=== PATIENT | female | born 1930 | race Caucasian/White ===

== ENCOUNTER 2017-12-23 06:23 | Inpatient (IN) | payer MEDICARE, MEDICAID ==
[~2017-12-23] VITALS: Ht 162.6 cm; Wt 75.0 kg
[~2017-12-23 06:23] MED LIST: ACET650T24 PO; ADV50250 IH; ALD25T PO; ALEN70TA48 PO; ASPI-1265 PO; CALC-3 PO; DOCU100C40 PO; FURO40TA4 PO; HYDR-3965 PO; HYDR-569 PO; ISOS30TA PO; LEVO50TA67 PO; LORA-512 PO; LOSA50TA3 PO; ZOC5T PO
[2017-12-23] MEDS ORDERED: albuterol 2.5 MG/3 ML nebule NEB ONE (06:45)
[2017-12-23 07:16] LABS: BASOPHILS % (AUTO) 0.1 % (0-1); EOSINOPHILS % (AUTO) 0 % (0-6); HEMATOCRIT 28.9 % (35.0-45.0); HEMOGLOBIN 9.2 g/dl (12.0-16.0); LYMPHOCYTES # (AUTO) 0.9 X10'3 (1.1-4.8); LYMPHOCYTES % (AUTO) 7.1 % (21-51); MEAN CORPUSCULAR HEMOGLOBIN 25.9 PG (27.0-31.0); MEAN PLATELET VOLUME 6.7 FL (7.4-10.4); MONOCYTES # (AUTO) 0.6 X10'3 (0-0.9); MONOCYTES % (AUTO) 4.6 % (2-12); NEUTROPHILS # (AUTO) 10.7 X10'3 (1.8-7.7); NEUTROPHILS % (AUTO) 88.2 % (42-75); PLATELET COUNT 321 X10'3 (140-440); RED BLOOD COUNT 3.56 X10'6 (4.20-5.60); RED CELL DISTRIBUTION WIDTH 16.2 % (11.5-14.5); WHITE BLOOD COUNT 12.2 X10'3 (4.5-11.0)
[2017-12-23 07:25] LABS: PARTIAL THROMBOPLASTIN TIME 33 SECONDS (22-32); PROTHROMBIN TIME 10.1 SECONDS (9.0-12.0)
[2017-12-23] MEDS ORDERED: methylPREDNISolone sod succ 125mg/2ml vial IV ONE (07:30)
[2017-12-23 07:31] LABS: ALANINE AMINOTRANSFERASE 41 U/L (12-78); ALBUMIN 2.3 G/DL (3.4-5.0); ALBUMIN/GLOBULIN RATIO 0.4 (1.1-1.5); ALKALINE PHOSPHATASE 455 IU/L (46-116); ANION GAP 11 (8-16); ASPARTATE AMINO TRANSFERASE 44 U/L (10-37); BILIRUBIN,TOTAL 0.3 MG/DL (0.1-1.0); BLOOD UREA NITROGEN 36 MG/DL (7-18); BUN/CREATININE RATIO 29.5 (6.6-38.0); CALCIUM 8.9 MG/DL (8.5-10.1); CHLORIDE 104 MMOL/L (99-107); CREATININE 1.22 MG/DL (0.40-0.90); GLUCOSE 175 MG/DL (70-104); POTASSIUM 4.6 MMOL/L (3.5-5.1); SODIUM 139 MMOL/L (135-145); TOTAL CARBON DIOXIDE 23.7 MMOL/L (24-32); TOTAL PROTEIN 7.7 G/DL (6.4-8.2); eGFR 42 ML/MIN
[2017-12-23] MEDS ORDERED: ipratropium 0.5 MG/2.5ML nebule IH ONE (08:30)
[2017-12-23] MEDS ORDERED: ipratropium 0.5 MG/2.5ML nebule ONE (08:30)
[2017-12-23] MEDS ORDERED: furosemide 10 MG/1 ML 10ml inj IV ONE (10:15)
[2017-12-23] MEDS ORDERED: nitroGLYCERIN 0.4mg SUBLingual tab SL PRN (10:15)
[2017-12-23] MEDS ORDERED: magnesium 4gm in 100ml NS 100 ML IV PRN (10:20)
[2017-12-23] MEDS ORDERED: magnesium 2GM in 50ml NS 50 ML IV PRN (10:20)
[2017-12-23] MEDS ORDERED: morphine 4 MG/ML inj SYRINge IV PRN ×2 (10:20)
[2017-12-23] MEDS ORDERED: acetaminophen 325mg tablet PO PRN ×2 (10:20)
[2017-12-23] MEDS ORDERED: potassium Cl 20 mEq SR tablet PO PRN ×2 (10:20)
[2017-12-23] MEDS ORDERED: HYDROcodone/acetaminophen 10/325mg tab PO PRN (10:20)
[2017-12-23] MEDS ORDERED: magnesium hydroxide 30ml (MOM) UD suspension PO PRN (10:20)
[2017-12-23] MEDS ORDERED: mag hydrox/Alum hydrox/simeth 30ml oral suspension PO PRN (10:20)
[2017-12-23] MEDS ORDERED: ondansetron/PF 4mg/2ml inj IV PRN (10:20)
[2017-12-23] MEDS ORDERED: HYDROcodone/acetaminophen 5mg/325mg tablet PO PRN (10:20)
[2017-12-23] MEDS ORDERED: potassium Cl 40MEQ/NS 500ml 500 ML IV PRN ×2 (10:20)
[2017-12-23] MEDS ORDERED: magnesium Cl slow-release 64mg tablet PO PRN (10:20)
[2017-12-23] MEDS ORDERED: docusate sod 100mg capsule PO PRN (10:40)
[2017-12-23] MEDS ORDERED: methylPREDNISolone sod succ 125mg/2ml vial IV SCH (10:40)
[2017-12-23] MEDS: levoFLOXACIN-Levaquin 500mg/D5 100 ML IV SCH (11:17)
[2017-12-23] MEDS ORDERED: HYDR-3972 (11:44)
[2017-12-23] MEDS ORDERED: PROP10TA10 (11:44)
[2017-12-23 12:50] VITALS: BP 128/66
[2017-12-23 15:40] VITALS: BP 133/64
[2017-12-23 16:35] VITALS: BP 122/66
[2017-12-23] MEDS ORDERED: heparin 10,000 units/1 ML INJ IV PRN (16:50)
[2017-12-23] MEDS ORDERED: heparin 10,000 units/1 ML INJ IV ONE (16:50)
[2017-12-23 17:13] LABS: BASOPHILS % (AUTO) 0.1 % (0-1); EOSINOPHILS % (AUTO) 0.6 % (0-6); HEMATOCRIT 27.2 % (35.0-45.0); HEMOGLOBIN 8.7 g/dl (12.0-16.0); LYMPHOCYTES # (AUTO) 0.5 X10'3 (1.1-4.8); LYMPHOCYTES % (AUTO) 9.8 % (21-51); MEAN CORPUSCULAR HEMOGLOBIN 25.6 PG (27.0-31.0); MEAN PLATELET VOLUME 7.6 FL (7.4-10.4); MONOCYTES % (AUTO) 0.9 % (2-12); NEUTROPHILS # (AUTO) 4.2 X10'3 (1.8-7.7); NEUTROPHILS % (AUTO) 88.6 % (42-75); PLATELET COUNT 220 X10'3 (140-440); WHITE BLOOD COUNT 4.7 X10'3 (4.5-11.0)
[2017-12-23 17:18] LABS: PARTIAL THROMBOPLASTIN TIME 33 SECONDS (22-32); PROTHROMBIN TIME 10.3 SECONDS (9.0-12.0)
[2017-12-23] MEDS: albuterol 2.5 MG/3 ML nebule NEB SCH ×2 (17:23→20:13)
[2017-12-23] MEDS ORDERED: tirofiban 5mg in NS 100mL 100 ML IV SCH (18:30)
[2017-12-23 19:00] VITALS: BP 137/94
[2017-12-23] MEDS ORDERED: heparin, porcine 5000 units/ml vial SQ SCH (20:00)
[2017-12-23] MEDS ORDERED: temazepam 15mg capsule PO PRN (21:00)
[2017-12-23] MEDS: atorvastatin 10mg tablet PO SCH (21:00)
[2017-12-23 23:00] VITALS: BP 119/71
[2017-12-24] VITALS (11 sets, daily range): BP systolic 90–121; BP diastolic 52–69
[2017-12-24] MEDS ORDERED: morphine 2 MG/ML inj. syringe IV PRN (01:00)
[2017-12-24] MEDS ORDERED: nitroGLYCERIN 0.4mg/hour patch TD ONE (01:00)
[2017-12-24] MEDS ORDERED: morphine 4 MG/ML inj SYRINge IV PRN (01:10)
[2017-12-24] MEDS: morphine 4 MG/ML inj SYRINge IV PRN ×2 (01:29→06:23)
[2017-12-24] MEDS: albuterol 2.5 MG/3 ML nebule NEB SCH ×4 (02:37→20:00)
[2017-12-24 06:47] LABS: ALBUMIN 2.3 G/DL (3.4-5.0); ANION GAP 15 (8-16); BLOOD UREA NITROGEN 55 MG/DL (7-18); BUN/CREATININE RATIO 30.4 (6.6-38.0); CALCIUM 9.1 MG/DL (8.5-10.1); CHLORIDE 105 MMOL/L (99-107); CREATININE 1.81 MG/DL (0.40-0.90); GLUCOSE 170 MG/DL (70-104); MAGNESIUM 2.2 MG/DL (1.5-2.4); POTASSIUM 5.5 MMOL/L (3.5-5.1); SODIUM 141 MMOL/L (135-145); eGFR 26 ML/MIN
[2017-12-24] MEDS ORDERED: levoTHYROXINE 25mcg tablet PO SCH (07:00)
[2017-12-24] MEDS ORDERED: pantoprazole 40mg Tablet.DR PO SCH (07:30)
[2017-12-24] MEDS ORDERED: losartan 50mg tablet PO SCH (08:00)
[2017-12-24] MEDS ORDERED: spironolactone 25 MG tablet PO SCH (08:00)
[2017-12-24] MEDS ORDERED: K and/or MAG REPLACEMENT MC SCH (08:00)
[2017-12-24] MEDS ORDERED: isosorbide mononitrate 30mg tab.SR.24H PO SCH (08:00)
[2017-12-24] MEDS ORDERED: furosemide 20 MG/2 ML vial IV SCH ×2 (08:00→20:00)
[2017-12-24] MEDS ORDERED: cetirizine 10mg tablet PO SCH (08:00)
[2017-12-24] MEDS ORDERED: aspirin 81mg tab.chew PO SCH (08:00)
[2017-12-24 08:29] LABS: BASOPHILS % (AUTO) 0 % (0-1); EOSINOPHILS % (AUTO) 0.7 % (0-6); HEMATOCRIT 26.9 % (35.0-45.0); HEMOGLOBIN 8.8 g/dl (12.0-16.0); LYMPHOCYTES # (AUTO) 0.5 X10'3 (1.1-4.8); LYMPHOCYTES % (AUTO) 7.2 % (21-51); MEAN CORPUSCULAR HGB CONC 32.8 % (33.0-36.5); MEAN CORPUSCULAR VOLUME 79.3 FL (78-98); MEAN PLATELET VOLUME 8.8 FL (7.4-10.4); MONOCYTES # (AUTO) 0.4 X10'3 (0-0.9); MONOCYTES % (AUTO) 6.9 % (2-12); NEUTROPHILS # (AUTO) 5.5 X10'3 (1.8-7.7); NEUTROPHILS % (AUTO) 85.2 % (42-75); RED BLOOD COUNT 3.39 X10'6 (4.20-5.60); RED CELL DISTRIBUTION WIDTH 15.8 % (11.5-14.5); WHITE BLOOD COUNT 6.4 X10'3 (4.5-11.0)
[2017-12-24 08:49] LABS: PLATELET COUNT 11 X10'3 (140-440)
[2017-12-24] MEDS: carVEDilol 3.125mg tablet PO SCH ×2 (10:02→20:00)
[2017-12-24] MEDS: levoFLOXACIN-Levaquin 500mg/D5 100 ML IV SCH (10:23)
[2017-12-24 10:55] LABS: CHOL/HDL RATIO 1.6 (0.00-4.99); CHOLESTEROL 95 MG/DL (0-200); HDL CHOLESTEROL 60 MG/DL (35-60); LDL CHOLESTEROL 25 MG/DL (50-100); TRIGLYCERIDES 50 MG/DL (20-135)
[2017-12-24 14:29] LABS: ALBUMIN 2.3 G/DL (3.4-5.0); ANION GAP 11 (8-16); BLOOD UREA NITROGEN 66 MG/DL (7-18); BUN/CREATININE RATIO 32.4 (6.6-38.0); CALCIUM 8.7 MG/DL (8.5-10.1); CHLORIDE 105 MMOL/L (99-107); CREATININE 2.04 MG/DL (0.40-0.90); POTASSIUM 5.8 MMOL/L (3.5-5.1); SODIUM 141 MMOL/L (135-145); TOTAL CARBON DIOXIDE 24.8 MMOL/L (24-32); eGFR 23 ML/MIN
[2017-12-24 14:30] LABS: GLUCOSE 149 MG/DL (70-104)
[2017-12-24] MEDS ORDERED: furosemide 40mg/4ml inj IV ONE (14:40)
[2017-12-24] MEDS ORDERED: sodium polystyrene sulfonate 15gm/60ml oral suspension PO STA (14:50)
[2017-12-24] MEDS ORDERED: normal saline 1000ml 1,000 ML IV SCH (15:00)
[2017-12-24] MEDS ORDERED: levoFLOXACIN-Levaquin 500mg/D5 100 ML IV SCH (15:06)
[2017-12-24 17:39] LABS: BASOPHILS % (AUTO) 0.1 % (0-1); EOSINOPHILS % (AUTO) 0 % (0-6); HEMATOCRIT 25.8 % (35.0-45.0); HEMOGLOBIN 8.3 g/dl (12.0-16.0); LYMPHOCYTES # (AUTO) 0.7 X10'3 (1.1-4.8); LYMPHOCYTES % (AUTO) 7.1 % (21-51); MEAN CORPUSCULAR HEMOGLOBIN 25.9 PG (27.0-31.0); MEAN CORPUSCULAR HGB CONC 32.1 % (33.0-36.5); MEAN CORPUSCULAR VOLUME 80.6 FL (78-98); MEAN PLATELET VOLUME 8.5 FL (7.4-10.4); MONOCYTES # (AUTO) 0.8 X10'3 (0-0.9); MONOCYTES % (AUTO) 8.7 % (2-12); NEUTROPHILS # (AUTO) 8.1 X10'3 (1.8-7.7); NEUTROPHILS % (AUTO) 84.1 % (42-75); RED CELL DISTRIBUTION WIDTH 15.7 % (11.5-14.5); WHITE BLOOD COUNT 9.7 X10'3 (4.5-11.0)
[2017-12-24 17:44] LABS: PLATELET COUNT 26 X10'3 (140-440)
[2017-12-24] MEDS ORDERED: insulin regular, human 10 units/0.1 ml syringe IV ONE (17:45)
[2017-12-24] MEDS ORDERED: albuterol 2.5 MG/3 ML nebule NEB ONE (17:45)
[2017-12-24] MEDS ORDERED: dextrose 50%-water 50ml dispensing syringe IV ONE (17:45)
[2017-12-24] MEDS ORDERED: furosemide 20 MG/2 ML vial IV ONE (19:45)
[2017-12-24] MEDS ORDERED: lactobacillus rhamnosus 10,000 MMU CELLS/CAPSULE PO SCH (20:00)
[2017-12-24] MEDS: atorvastatin 10mg tablet PO SCH (21:00)
[2017-12-25] MEDS: albuterol 2.5 MG/3 ML nebule NEB SCH (00:04)
[2017-12-25 03:00] VITALS: BP 85/32
[2017-12-25 03:01] VITALS: BP 84/36
[2017-12-25 03:02] VITALS: BP 90/44
[2017-12-25] MEDS ORDERED: furosemide 20 MG/2 ML vial IV ONE (03:15)
[2017-12-25 03:50] LABS: ABG HCO3 21.3 mmol/L (22.0-26.0); ABG OXYGEN SATURATION 81.2 % (95-98); ABG PCO2 (T) 75.1 mmHg (32.0-45.0); ABG PH (T) 7.066 (7.350-7.450); ABG PO2 (T) 64.4 mmHg (83-108); ALLEN'S TEST Positive; FCOHb 2.1 % (0.5-1.5); FLOW 15 L/min; FMetHb 0.1 % (0.3-1.12); FO2Hb 79.4 % (94-100); PATIENT TEMPERATURE 36.3; RESPIRATORY RATE (OBSERVED) 20 b/min; TOTAL HEMOGLOBIN 8.1 G/dl (12.0-16.0)
[2017-12-25] MEDS ORDERED: morphine 10mg/ml inj. IV PRN (04:05)
[2017-12-25] MEDS ORDERED: morphine 10mg/0.5ml (conc. morphine) oral syringe PO PRN (04:05)
[2017-12-25] MEDS ORDERED: LORazepam 2 mg/ml vial IV PRN (04:05)
== END 2017-12-25 08:36 | disposition expired | DRG 871 ==
LOC: ER 06:23 → ED HOLD 09:56 → ORTHO 4S 16:40 → PCU 3S 19:35
PROVIDERS: ADMIT Internal Medicine; ATTEND Internal Medicine
PROC: 30233R1 Transfusion of Nonautologous Platelets into Peripheral Vein, Percutaneous Approach (ICD-10-PCS; principal; 2017-12-24)
DX: A41.9 Sepsis, unspecified organism (principal); I21.4 Non-ST elevation (NSTEMI) myocardial infarction; I50.23 Acute on chronic systolic (congestive) heart failure; N17.9 Acute kidney failure, unspecified; J18.9 Pneumonia, unspecified organism; D69.6 Thrombocytopenia, unspecified; E87.5 Hyperkalemia; I11.0 Hypertensive heart disease with heart failure; I31.3 Pericardial effusion (noninflammatory); J44.0 Chronic obstructive pulmonary disease with (acute) lower respiratory infection; J44.1 Chronic obstructive pulmonary disease with (acute) exacerbation; E03.9 Hypothyroidism, unspecified; E78.5 Hyperlipidemia, unspecified; E11.9 Type 2 diabetes mellitus without complications; H91.90 Unspecified hearing loss, unspecified ear; M19.90 Unspecified osteoarthritis, unspecified site; M81.0 Age-related osteoporosis without current pathological fracture; Z77.22 Contact with and (suspected) exposure to environmental tobacco smoke (acute) (chronic); I08.0 Rheumatic disorders of both mitral and aortic valves; I25.10 Atherosclerotic heart disease of native coronary artery without angina pectoris; D64.9 Anemia, unspecified; Z51.5 Encounter for palliative care; Z66 Do not resuscitate; Z90.49 Acquired absence of other specified parts of digestive tract; Z95.0 Presence of cardiac pacemaker; I25.2 Old myocardial infarction; Z79.82 Long term (current) use of aspirin; Z79.899 Other long term (current) drug therapy; Z88.1 Allergy status to other antibiotic agents; Z88.6 Allergy status to analgesic agent; Z88.8 Allergy status to other drugs, medicaments and biological substances; Z91.013 Allergy to seafood
CPT/HCPCS: 36415; 36600; 71045; 80048; 80053; 80061; 82803; 82948; 83605; 83735; 83880; 84443; 84484; 85018; 85025; 85610; 85730; 86022; 86885; 86900; 86901; 87040; 87070; 93005; 93306; 94640; 94760; 96374; 99291; A4315; J1644; J1815; J1940; J1956; J2270; J2405; J2930; J3246; J7030; P9035